=== PATIENT | female | born 1960 | race Caucasian/White ===

== ENCOUNTER → 2016-11-26 | Outpatient (CLI) | payer OTHER ==
[~2016-11-26] MED LIST: AMBIEN CR PO; AMBIEN10 MG PO; ATACAND PO; ATARAX PO; COZAAR100 MG PO; DIAZEPAM PO; DIOVAN PO; KLONOPIN PO; LAMICTAL PO; MECLIZINE HCL12.5 M1 PO; PEPCID AC20 M2 PO; PREDNISONE PO; PRILOSEC PO; PROTONIX PO; TOPAMAX PO; VALIUM10 MG PO; ZYRTEC10 M2 PO
[2016-11-26 12:45] LABS: INR 1.8; PROTHROMBIN TIME (PATIENT) 20.1 SECONDS (9.5-12.4)
== END | disposition home or self-care (01) ==
LOC: SLAB 12:16
PROVIDERS: Orthopaedic Surgery
DX: Z51.81 Encounter for therapeutic drug level monitoring (principal); Z79.01 Long term (current) use of anticoagulants; Z96.652 Presence of left artificial knee joint
CPT/HCPCS: 36415; 85610

== ENCOUNTER → 2017-02-20 | Outpatient (CLI) | payer BC ==
--- NOTE | ~2017-02-20 | NM4 ---
[facility] A Service of [facility] RADIOLOGY TEXT RESULTS PATIENT: PANTERA DAVID LOCATION: [facility] : 56 UNIT #: [id number] AGE: [address]: Vern Hernandez MD SEX: F ORDER DR: [id number] [facility] [address] [place], [place] [address] [id number] O MR#: [id number] Acc #: [id number] NAME: PANTERA DAVID. : 1960 SEX: F STUDY DATE/TIME: 02/20/2017 8:23 UNIT: [facility] ROOM: STUDY DESCRIPTION: [place] Bone or Joint 3 Phase Study Attending Physician: Vern Hernandez M.D. Referring Physician: Vern Hernandez M.D. Ordering Physician: Vern Hernandez M.D. Primary Care Physician: Paul Foreman M.D. MEDICAL IMAGING REPORT This report is preliminary unless electronic signature is present EXAM Three-phase bone scan of the knees with delayed-phase imaging pelvis through feet. Date of examination: 02/20/2017. HISTORY Order states left distal tibia pain status post left total knee revision. Evaluate for distal stress fracture. History sheet states pain in the knee and ankles all the way down to the leg into the ankle. Right knee replacement July 19, 2015. Left knee replacement July 19, 2015 with revision 10/30/2016. Comparison - CT of the left ankle 02/14/2017 (high field and open MRI radiology 02/14/2017) images do not appear fully loaded into the PACS system. The patient received 30.4 mCi technetium 99m MDP intravenously and vascular flow, blood pool, and delayed images of the lower extremities were performed. Vascular flow phase is centered at the knees. The report from the outside CT is not available. IMPRESSION There is moderate asymmetric of blood flow to the left knee compared to the right. There is moderate to marked increased uptake of the left knee in a periprosthetic location on the blood pool images raising the possibility of synovitis. Delayed-phase imaging demonstrates periprosthetic moderate increased uptake involving the femoral component on the left. There is moderate diffuse tibial component periprosthetic uptake extending into the proximal two-thirds of the tibia into the distal shaft. No focal intense uptake to suggest a definite fracture is noted. Correlate for clinical evidence of left knee arthroplasty infection or loosening. STS. [facility] A Service of [facility] RADIOLOGY TEXT RESULTS PATIENT: PANTERA DAVID LOCATION: [facility] : 56 UNIT #: [id number] AGE: [address]: Vern Hernandez MD SEX: F ORDER DR: The opposite prosthetic right knee is unremarkable on all 3 phases. Pelvis and hips are normal on delayed phase as are the ankles and feet. IMPRESSION 1. Positive three-phase bone scan of the prosthetic left knee with a marked phase II uptake suggestive of synovitis. Phase III uptake predominates in the periprosthetic medial femur and periprosthetic tibia with diffuse extension inferiorly to involve the proximal two-thirds of the tibia. Correlate for prosthetic loosening and/or infection. No focal abnormal uptake to definitively suggest fracture of the tibia is noted. The distal third of the left tibia is normal. 2. Right total knee arthroplasty without periprosthetic abnormality. 3. Pelvis, hips, ankles and feet are normal. Dictated by... Candice Luna M.D. THIS IS AN ELECTRONICALLY VERIFIED REPORT Candice Luna M.D. at 02/25/2017 8:39 AM SUMIT/sola TD: 02/24/2017 20:10 JOB #: [id number] MEDICAL IMAGING REPORT Page 1 of 1 COPY
== END | disposition home or self-care (01) ==
LOC: CNUC 07:54
DX: M79.662 Pain in left lower leg (principal); R94.8 Abnormal results of function studies of other organs and systems; Z96.652 Presence of left artificial knee joint
CPT/HCPCS: 78315; A9503

== ENCOUNTER → 2017-02-27 | Outpatient (CLI) | payer BC ==
[2017-02-27 16:02] LABS: HEMATOCRIT 39.1 % (35.0-45.0); HEMOGLOBIN 12.9 gm/dL (12.0-16.0); MEAN CELL VOLUME 80.8 FL (83-96); MEAN CORPUSCULAR HEMOGLOBIN 26.7 PG (28-34); MEAN CORPUSCULAR HGB CONC 33.1 g/dL (30-36); MEAN PLATELET VOLUME 9.9 FL (6.5-11.5); RED BLOOD COUNT 4.84 X10e (3.90-5.30); RED CELL DISTRIBUTION WIDTH 18.2 % (11.0-15.5); WHITE BLOOD COUNT 4.9 X10e3 (4.0-10.5)
== END | disposition home or self-care (01) ==
LOC: CLAB 15:17
PROVIDERS: Nurse Practitioner
DX: M25.562 Pain in left knee (principal)
CPT/HCPCS: 36415; 85027; 85652; 86140

== ENCOUNTER → 2017-03-12 | Outpatient (CLI) | payer BC ==
--- NOTE | ~2017-03-12 | CR63 ---
[facility] A Service of [facility] RADIOLOGY TEXT RESULTS PATIENT: PANTERA DAVID [id number] : 56 UNIT #: [id number] AGE: [address]: Dev Shane DPM SEX: F ORDER DR: [id number] [facility] [address] [place], [place] [address] [id number] O MR#: [id number] Acc #: [id number] NAME: PANTERA DAVID : 1960 SEX: F STUDY DATE/TIME: 03/12/2017 13:21 UNIT: [facility] ROOM: STUDY DESCRIPTION: CR Chest 2 View Attending Physician: Dev Shane D.P.M. Referring Physician: Dev Shane D.P.M. Ordering Physician: Dev Shane D.P.M. Primary Care Physician: Paul Foreman M.D. MEDICAL IMAGING REPORT This report is preliminary unless electronic signature is present EXAM PA and lateral chest INDICTIONS Preop foot surgery, hypertension, some shortness of air at this time. Shortness of air off and on for 8 years. COMPARISON: 01/13/16 FINDINGS A PA and lateral view of the chest were obtained. The lateral view is limited by patient's size and motion. The heart size and vascularity are normal. The lungs are clear and the bones are unremarkable. IMPRESSION No active disease Dictated by... Thiago Ingram M.D. THIS IS AN ELECTRONICALLY VERIFIED REPORT Thiago Ingram M.D. at 03/13/2017 3:38 PM CORTNEY/po TD: 03/13/2017 13:44 JOB #: [id number] MEDICAL IMAGING REPORT [facility] A Service [facility] RADIOLOGY TEXT RESULTS PATIENT: PANTERA DAVID [facility] [id number] : 56 UNIT #: [id number] AGE: [address]: Dev Shane DPM SEX: F ORDER DR: Page 1 of 1 COPY
[2017-03-12 14:09] LABS: BASOPHIL# 0.1 X10e3 (0-0.3); BASOPHIL% 1.1 % (0-2.5); EOSINOPHIL# 0.1 X10e3 (0-0.7); HEMOGLOBIN 12.7 gm/dL (12.0-16.0); LYMPHOCYTE# 1.6 X10e3 (1.0-3.5); LYMPHOCYTE% 34.5 % (17.0-45.0); MEAN CELL VOLUME 80.5 FL (83-96); MEAN CORPUSCULAR HEMOGLOBIN 26.8 PG (28-34); MEAN CORPUSCULAR HGB CONC 33.3 g/dL (30-36); MEAN PLATELET VOLUME 9.5 FL (6.5-11.5); MONOCYTE# 0.6 X10e3 (0-1.0); MONOCYTE% 12.4 % (3.0-12.0); NEUTROPHIL# 2.4 X10e3 (1.5-7.1); PLATELET COUNT 177 X10e3 (140-420); RED BLOOD COUNT 4.72 X10e (3.90-5.30); RED CELL DISTRIBUTION WIDTH 19.8 % (11.0-15.5); WHITE BLOOD COUNT 4.8 X10e3 (4.0-10.5)
[2017-03-12 14:30] LABS: DIFF IND NO
[2017-03-12 14:37] LABS: ALBUMIN SERUM 4.1 g/dL (3.5-5.0); BILIRUBIN,TOTAL 0.5 mg/dL (0.2-2.0); BUN/CREATININE RATIO 9.16; CREATININE SERUM 1.2 mg/dL (0.6-1.4); GLOM FILT RATE Estimated 49.8 mL/min (>60); POTASSIUM 4.2 mmol/L (3.5-5.1); PROTEIN TOTAL SERUM 6.7 g/dL (6.0-8.3)
== END | disposition home or self-care (01) ==
LOC: CRAD 12:44
PROVIDERS: Podiatrist Foot & Ankle Surgery
DX: Z01.818 Encounter for other preprocedural examination (principal); M79.609 Pain in unspecified limb; R26.2 Difficulty in walking, not elsewhere classified
CPT/HCPCS: 36415; 71020; 80053; 85025